=== PATIENT | female | born 1960 | race African-American/Black ===

== ENCOUNTER 2016-05-28 08:38 | Inpatient (IN) | payer BC, OTHER ==
[~2016-05-28] VITALS: Ht 162.6 cm; Wt 77.1 kg
[2016-05-28] MEDS ORDERED: LORAZEPAM 1 MG TABLET PO PRN ×2 (18:30)
[2016-05-28] MEDS ORDERED: ONDANSETRON ODT 4 MG TAB.RAPDIS SL PRN (18:30)
[2016-05-28] MEDS ORDERED: MAGNESIUM HYDROXIDE 30 ML LIQUID UDC PO PRN (18:30)
[2016-05-28] MEDS ORDERED: MAG HYDROX/AL HYDROX/SIMETH 30 ML LIQUID UDC PO PRN (18:30)
[2016-05-28] MEDS ORDERED: LORAZEPAM 2 MG/1 ML VIAL IM PRN (18:30)
[2016-05-28] MEDS ORDERED: DICYCLOMINE HCL 20 MG TABLET PO PRN (18:30)
[2016-05-28] MEDS ORDERED: THIAMINE HCL 200 MG/2 ML VIAL IM ONE (18:30)
[2016-05-28] MEDS ORDERED: LOPERAMIDE HCL 2 MG CAPSULE PO PRN ×2 (18:30)
[2016-05-28] MEDS ORDERED: IBUPROFEN 400 MG TABLET PO PRN (18:30)
[2016-05-28] MEDS ORDERED: ONDANSETRON 4 MG/2 ML VIAL IM PRN (18:30)
[2016-05-28] MEDS ORDERED: MIRALAX 17 GM POWD.PACK PO PRN (18:30)
[2016-05-28 18:50] LABS: *URINE HCG, QUAL NEGATIVE (NEGATIVE)
[2016-05-28 18:58] LABS: *AMPHETAMINE, URINE NEGATIVE (NEGATIVE); *BARBITURATE, URINE NEGATIVE (NEGATIVE); *CANNABINOID, URINE NEGATIVE (NEGATIVE); *COCCAINE, URINE NEGATIVE (NEGATIVE); *OPIATE, URINE POSITIVE (NEGATIVE); *PHENCYCLIDINE SCREEN,URINE NEGATIVE (NEGATIVE)
[2016-05-28 20:00] VITALS: BP 141/84
[2016-05-28] MEDS: HYDROXYZINE PAMOATE 25 MG CAPSULE PO PRN (20:46)
[2016-05-28] MEDS ORDERED: METHOCARBAMOL 750 MG TABLET PO PRN (21:00)
[2016-05-28 21:32] LABS: BASOPHILS # (AUTO) 0.1 K/uL (0.0-8.0); BASOPHILS % (AUTO) 0.5 % (0.0-2.0); EOSINOPHILS # (AUTO) 0.1 K/uL (0.0-0.7); EOSINOPHILS % (AUTO) 1.3 % (0.0-7.0); HEMATOCRIT 36.7 % (31.2-41.9); HEMOGLOBIN 12.6 g/dL (10.9-14.3); LYMPHOCYTES # (AUTO) 3.3 K/uL (40.0-85.0); LYMPHOCYTES % (AUTO) 28.5 % (20.5-51.5); MEAN CORPUSCULAR HEMOGLOBIN 35.4 uug (24.7-32.8); MEAN CORPUSCULAR HGB CONC 34 g/dL (32.3-35.6); MEAN CORPUSCULAR VOLUME 103.1 fL (75.5-95.3); MONOCYTES # (AUTO) 0.4 K/uL (2.0-10.0); MONOCYTES % (AUTO) 3.5 % (0.0-11.0); NEUTROPHILS # (AUTO) 7.6 K/uL (1.8-8.9); NEUTROPHILS % (AUTO) 66.2 % (38.5-71.5); PLATELET COUNT (AUTO) 400 K/uL (179-408); RED BLOOD CELL COUNT(AUTO) 3.56 MIL/uL (3.63-4.92); RED CELL DISTRIBUTION WIDTH 12.7 % (12.3-17.7); WHITE BLOOD COUNT (AUTO) 11.5 K/uL (3.8-11.8)
[2016-05-28 21:46] LABS: ALBUMIN 3.2 g/dL (3.4-5.0); BILIRUBIN,TOTAL 0.3 mg/dL (0.2-1.0); CALCIUM 8.6 mg/dL (8.5-10.1); CREATININE 0.7 mg/dL (0.6-1.3); MAGNESIUM 2.1 mg/dL (1.8-2.4); POTASSIUM 3.9 mmol/L (3.5-5.1); TOTAL PROTEIN, SERUM 8.2 g/dL (6.4-8.2)
[2016-05-28 21:52] LABS: THYROID STIMULATING HORMONE 7.812 mIU/mL (0.358-3.740)
[2016-05-28 21:56] LABS: HIV-1 p24 ANTIGEN NON REACTIVE (NONREACTIVE); HIV-1/2 ANTIBODY NON REACTIVE (NONREACTIVE)
[2016-05-28] MEDS: diphenhydrAMINE 50 MG CAPSULE PO PRN (22:27)
[2016-05-29] VITALS: BP 138/82
[2016-05-29 04:00] VITALS: BP 140/85
[2016-05-29] MEDS ORDERED: TRIA1CAP6 PO (05:46)
[2016-05-29] MEDS: CLONIDINE HCL 0.1 MG TABLET PO PRN ×2 (06:54→17:27)
[2016-05-29 08:00] VITALS: BP 115/66
[2016-05-29] MEDS: THIAMINE HCL 100 MG TABLET PO SCH (08:08)
[2016-05-29] MEDS: ACETAMINOPHEN 325 MG TABLET PO PRN ×2 (08:08→17:26)
[2016-05-29] MEDS: FOLIC ACID 1 MG TABLET PO SCH (08:09)
[2016-05-29] MEDS: LORAZEPAM 1 MG TABLET PO SCH ×4 (08:09→21:17)
[2016-05-29] MEDS: MULTIVITAMINS,THERAPEUTIC TABLET PO SCH (08:09)
[2016-05-29] MEDS ORDERED: TUBERCULIN,PURIF.PROT.DERIV. 5 TU/0.1 ML TEST ID ONE (09:00)
[2016-05-29] MEDS ORDERED: HYDROCHLOROTHIAZIDE 25 MG TABLET PO SCH (09:00)
[2016-05-29 12:00] VITALS: BP 125/80
[2016-05-29 16:00] VITALS: BP 147/100
[2016-05-29 17:53] LABS: *BILIRUBIN,URIN NEGATIVE (NEGATIVE); *BLOOD, URINE 1+ (NEGATIVE); *CLARITY,URINE CLEAR (CLEAR); *COLOR,URINE YELLOW (YELLOW); *KETONES,URINE NEGATIVE (NEGATIVE); *PROTEIN,URINE NEGATIVE (NEGATIVE); *UROBILINOGEN,URINE 0.2 E.U./dl (NORMAL); LEUKOCYTE ESTERASE ,URINE NEGATIVE (NEGATIVE); NITRITE, URINE NEGATIVE (NEGATIVE); UGLUCOSE NEGATIVE (NEGATIVE)
[2016-05-29 18:26] LABS: BACTERIA,URINE NONE SEEN /HPF (NONE SEEN); SQUAMOUS EPITHELIAL CELL,UR NONE SEEN /HPF (NONE SEEN); WBC,URINE 0-3 /HPF (0-3)
[2016-05-29 20:00] VITALS: BP 97/59
[2016-05-29] MEDS: BACLOFEN 20 MG TABLET PO PRN (21:17)
[2016-05-30] VITALS: BP 112/63
[2016-05-30] MEDS: BACLOFEN 20 MG TABLET PO PRN (07:22)
[2016-05-30 08:00] VITALS: BP 138/84
[2016-05-30] MEDS: MULTIVITAMINS,THERAPEUTIC TABLET PO SCH (08:43)
[2016-05-30] MEDS: PATIENT MAY USE OWN MED- MD OK PO SCH (08:43)
[2016-05-30] MEDS: THIAMINE HCL 100 MG TABLET PO SCH (08:43)
[2016-05-30] MEDS: LORAZEPAM 1 MG TABLET PO SCH ×3 (08:47→20:14)
[2016-05-30] MEDS: FOLIC ACID 1 MG TABLET PO SCH (08:48)
[2016-05-30 12:00] VITALS: BP 117/70
[2016-05-30] MEDS: GABAPENTIN 300 MG CAPSULE PO SCH ×2 (12:54→16:32)
[2016-05-30] MEDS: BACLOFEN 20 MG TABLET PO SCH ×2 (14:35→20:13)
[2016-05-30] MEDS: ACETAMINOPHEN 325 MG TABLET PO PRN (15:10)
[2016-05-30 16:00] VITALS: BP 112/57
[2016-05-30 20:00] VITALS: BP 117/76
[2016-05-30] MEDS: diphenhydrAMINE 50 MG CAPSULE PO PRN (21:23)
[2016-05-31] VITALS: BP 132/78
[2016-05-31 04:00] VITALS: BP 120/67
[2016-05-31 04:06] LABS: HCV AB <0.1 s/co ratio (0.0-0.9); HEPATITIS B CORE AB, IgM Negative (Negative); HEPATITIS B SURFACE AG Negative (Negative)
[2016-05-31 07:18] LABS: BASOPHILS % (AUTO) 0.2 % (0.0-2.0); EOSINOPHILS # (AUTO) 0.1 K/uL (0.0-0.7); EOSINOPHILS % (AUTO) 0.9 % (0.0-7.0); HEMATOCRIT 37.7 % (31.2-41.9); HEMOGLOBIN 12.6 g/dL (10.9-14.3); LYMPHOCYTES # (AUTO) 2.6 K/uL (20.0-40.0); LYMPHOCYTES % (AUTO) 26.6 % (20.5-51.5); MEAN CORPUSCULAR HEMOGLOBIN 34.5 uug (24.7-32.8); MEAN CORPUSCULAR HGB CONC 33 g/dL (32.3-35.6); MEAN CORPUSCULAR VOLUME 103.1 fL (75.5-95.3); MONOCYTES # (AUTO) 0.6 K/uL (2.0-10.0); MONOCYTES % (AUTO) 5.8 % (0.0-11.0); NEUTROPHILS # (AUTO) 6.5 K/uL (1.8-8.9); NEUTROPHILS % (AUTO) 66.5 % (38.5-71.5); PLATELET COUNT (AUTO) 341 K/uL (179-408); RED BLOOD CELL COUNT(AUTO) 3.65 MIL/uL (3.63-4.92); RED CELL DISTRIBUTION WIDTH 12.9 % (12.3-17.7); WHITE BLOOD COUNT (AUTO) 9.8 K/uL (3.8-11.8)
[2016-05-31 07:53] LABS: THYROID STIMULATING HORMONE 5.141 mIU/mL (0.358-3.740)
[2016-05-31 08:00] VITALS: BP 121/73
[2016-05-31 08:15] LABS: ALBUMIN 2.9 g/dL (3.4-5.0); BILIRUBIN,DIRECT 0.1 mg/dL (0.0-0.2); BILIRUBIN,TOTAL 0.4 mg/dL (0.2-1.0); CREATININE 0.8 mg/dL (0.6-1.3); MAGNESIUM 2.2 mg/dL (1.8-2.4); PHOSPHOROUS 3.8 mg/dL (2.5-4.9); POTASSIUM 4.2 mmol/L (3.5-5.1); TOTAL PROTEIN, SERUM 7.6 g/dL (6.4-8.2)
[2016-05-31] MEDS: FOLIC ACID 1 MG TABLET PO SCH (08:54)
[2016-05-31] MEDS: MULTIVITAMINS,THERAPEUTIC TABLET PO SCH (08:54)
[2016-05-31] MEDS: LORAZEPAM 1 MG TABLET PO SCH ×4 (08:54→20:02)
[2016-05-31] MEDS: THIAMINE HCL 100 MG TABLET PO SCH (08:54)
[2016-05-31] MEDS: GABAPENTIN 300 MG CAPSULE PO SCH ×4 (08:54→20:02)
[2016-05-31] MEDS: BACLOFEN 20 MG TABLET PO SCH ×3 (08:54→20:02)
[2016-05-31] MEDS: PATIENT MAY USE OWN MED- MD OK PO SCH (09:04)
[2016-05-31 09:38] LABS: FOLIC ACID 6.4 NG/ML (8.6-58.9)
[2016-05-31 12:00] VITALS: BP 141/84
[2016-05-31 16:00] VITALS: BP 130/72
[2016-05-31 20:00] VITALS: BP 112/71
[2016-05-31] MEDS: diphenhydrAMINE 50 MG CAPSULE PO PRN (20:02)
[2016-06-01 08:00] VITALS: BP 123/78
[2016-06-01] MEDS: MULTIVITAMINS,THERAPEUTIC TABLET PO SCH (08:49)
[2016-06-01] MEDS: FOLIC ACID 1 MG TABLET PO SCH (08:49)
[2016-06-01] MEDS: PATIENT MAY USE OWN MED- MD OK PO SCH (08:49)
[2016-06-01] MEDS: THIAMINE HCL 100 MG TABLET PO SCH (08:50)
[2016-06-01] MEDS: GABAPENTIN 300 MG CAPSULE PO SCH ×3 (08:50→20:17)
[2016-06-01] MEDS: BACLOFEN 20 MG TABLET PO SCH ×2 (08:50→14:27)
[2016-06-01] MEDS ORDERED: LORAZEPAM 1 MG TABLET PO SCH ×2 (09:00→21:00)
[2016-06-01 12:00] VITALS: BP 128/80
[2016-06-01] MEDS: IBUPROFEN 600 MG TABLET PO PRN (14:27)
[2016-06-01] MEDS: HYDROXYZINE PAMOATE 25 MG CAPSULE PO PRN (14:27)
[2016-06-01 16:00] VITALS: BP 145/85
[2016-06-01 20:00] VITALS: BP 131/83
[2016-06-01] MEDS: diphenhydrAMINE 50 MG CAPSULE PO PRN (20:17)
[2016-06-01] MEDS: BACLOFEN 10 MG TABLET PO SCH (20:17)
[2016-06-01] MEDS ORDERED: BACLOFEN 20 MG TABLET PO SCH (21:00)
[2016-06-02] VITALS: BP 127/79
[2016-06-02 08:00] VITALS: BP 128/86
[2016-06-02] MEDS: MULTIVITAMINS,THERAPEUTIC TABLET PO SCH (08:40)
[2016-06-02] MEDS: FOLIC ACID 1 MG TABLET PO SCH (08:40)
[2016-06-02] MEDS: BACLOFEN 10 MG TABLET PO SCH (08:40)
[2016-06-02] MEDS: THIAMINE HCL 100 MG TABLET PO SCH (08:40)
[2016-06-02] MEDS: GABAPENTIN 300 MG CAPSULE PO SCH ×3 (08:40→20:23)
[2016-06-02] MEDS: PATIENT MAY USE OWN MED- MD OK PO SCH (08:41)
[2016-06-02] MEDS: HYDROXYZINE PAMOATE 25 MG CAPSULE PO PRN (08:55)
[2016-06-02] MEDS ORDERED: LORAZEPAM 1 MG TABLET PO SCH (09:00)
[2016-06-02 12:00] VITALS: BP 140/86
[2016-06-02] MEDS ORDERED: BACLOFEN 10 MG TABLET PO PRN (14:30)
[2016-06-02 15:40] LABS: *AMPHETAMINE, URINE NEGATIVE (NEGATIVE); *BARBITURATE, URINE NEGATIVE (NEGATIVE); *CANNABINOID, URINE NEGATIVE (NEGATIVE); *COCCAINE, URINE NEGATIVE (NEGATIVE); *OPIATE, URINE NEGATIVE (NEGATIVE); *PHENCYCLIDINE SCREEN,URINE NEGATIVE (NEGATIVE)
[2016-06-02 16:00] VITALS: BP 118/75
[2016-06-02] MEDS: IBUPROFEN 600 MG TABLET PO PRN (18:27)
[2016-06-02] MEDS ORDERED: DICY20TA28 PO (19:17)
[2016-06-02] MEDS ORDERED: HYDR-3895 PO (19:17)
[2016-06-02] MEDS ORDERED: Ibuprofen PO (19:17)
[2016-06-02] MEDS ORDERED: Gabapentin PO ×2 (19:17)
[2016-06-02] MEDS ORDERED: Baclofen PO (19:17)
[2016-06-02] MEDS ORDERED: DIPH50CA37 PO (19:17)
[2016-06-02] MEDS ORDERED: Folic Acid PO (19:17)
[2016-06-02 20:00] VITALS: BP 127/72
[2016-06-02] MEDS: ACETAMINOPHEN 325 MG TABLET PO PRN (20:24)
[2016-06-02] MEDS: diphenhydrAMINE 50 MG CAPSULE PO PRN (20:26)
[2016-06-03] MEDS: GABAPENTIN 300 MG CAPSULE PO SCH (07:55)
[2016-06-03] MEDS: FOLIC ACID 1 MG TABLET PO SCH (07:55)
[2016-06-03] MEDS: THIAMINE HCL 100 MG TABLET PO SCH (07:56)
[2016-06-03] MEDS: PATIENT MAY USE OWN MED- MD OK PO SCH (07:56)
[2016-06-03] MEDS: MULTIVITAMINS,THERAPEUTIC TABLET PO SCH (07:56)
[2016-06-03 08:29] LABS: *CODEINE Negative (Cutoff=300); *HYDROMORPHONE Positive (.); *OPIATES Positive ng/mL (Cutoff=300)
[2016-06-03 08:38] VITALS: BP 134/83
== END 2016-06-03 09:56 | disposition home or self-care (01) | DRG 895 ==
LOC: SRC 17:45
PROVIDERS: ADMIT Internal Medicine; ATTEND Internal Medicine
PROC: HZ2ZZZZ Detoxification Services for Substance Abuse Treatment (ICD-10-PCS; principal; 2016-05-28)
PROC: HZ31ZZZ Individual Counseling for Substance Abuse Treatment, Behavioral (ICD-10-PCS; 2016-05-31)
PROC: HZ41ZZZ Group Counseling for Substance Abuse Treatment, Behavioral (ICD-10-PCS; 2016-05-31)
DX: F10.230 Alcohol dependence with withdrawal, uncomplicated (principal); F10.220 Alcohol dependence with intoxication, uncomplicated; K70.10 Alcoholic hepatitis without ascites; F11.10 Opioid abuse, uncomplicated; Y90.9 Presence of alcohol in blood, level not specified; G47.00 Insomnia, unspecified; F41.9 Anxiety disorder, unspecified; I10 Essential (primary) hypertension; Z83.3 Family history of diabetes mellitus; Z82.49 Family history of ischemic heart disease and other diseases of the circulatory system; Z81.1 Family history of alcohol abuse and dependence; Z80.9 Family history of malignant neoplasm, unspecified; G62.1 Alcoholic polyneuropathy; F32.9 Major depressive disorder, single episode, unspecified; E53.8 Deficiency of other specified B group vitamins; E07.81 Sick-euthyroid syndrome; F14.90 Cocaine use, unspecified, uncomplicated
CPT/HCPCS: 36415; 70030-TC; 80307; 80361; 82746; 83690; 83735; 84100; 84443; 84703; 85025; 86580; 86592; 86705; 86803; 87340; 87806; A4663; G6040-TC; J3411; Q0163